=== PATIENT | male | born 1950 | race Caucasian/White ===

== ENCOUNTER 2017-10-11 05:22 | Day surgery (SDC) | payer MEDICARE, OTHER ==
[2017-10-11] MEDS ORDERED: LIDOCAINE 2% (SDV) 5 ML INJ (06:09)
[2017-10-11] MEDS ORDERED: MIDAZOLAM 1 MG/ML 2 ML INJ (06:09)
[2017-10-11] MEDS ORDERED: PROPOFOL 20 ML (06:09)
[2017-10-11] MEDS ORDERED: NEOSTIGMINE 3 MG/3 ML SYRINGE (06:09)
[2017-10-11] MEDS ORDERED: ROCURONIUM 50 MG INJ (06:09)
[2017-10-11] MEDS ORDERED: GLYCOPYRROLATE 1 MG INJ (06:09)
[2017-10-11] MEDS ORDERED: FENTAnyl 50 MCG/ML VIAL (06:09)
[2017-10-11] MEDS ORDERED: DEXAMETHASONE 4 MG/ML 1 ML INJ (06:10)
[2017-10-11] MEDS ORDERED: ONDANSETRON 4 MG INJ (06:10)
[2017-10-11] MEDS ORDERED: SUCCINYLCHOLINE CHLORIDE 100 MG/5 ML SYG IV (06:24)
[2017-10-11 06:27] LABS: ADD MAN DIFF? NO
[2017-10-11] MEDS ORDERED: EPHEDrine SULFATE 50 MG/5 ML SYG IV (06:30)
[2017-10-11] MEDS ORDERED: MIDAZOLAM 1 MG/ML 2 ML INJ IV (06:30)
[2017-10-11] MEDS ORDERED: DIPHENHYDRAMINE 50 MG INJ IV (06:30)
[2017-10-11] MEDS ORDERED: ATROPINE 1 MG/10 ML SYRINGE IV (06:30)
[2017-10-11] MEDS ORDERED: MEPERIDINE 25 MG INJ IV (06:30)
[2017-10-11] MEDS ORDERED: ONDANSETRON 4 MG INJ IV (06:30)
[2017-10-11] MEDS ORDERED: FENTAnyl 50 MCG/ML VIAL IV ×2 (06:30)
[2017-10-11] MEDS ORDERED: OXYCODONE/ACETAMINOPHEN (5/325) TAB PO ×2 (06:30)
[2017-10-11] MEDS ORDERED: LABETALOL HCL 20MG INJ IV (06:30)
[2017-10-11] MEDS ORDERED: hydrALAzine 20 MG INJ IV (06:30)
[2017-10-11] MEDS ORDERED: morphine (1 MG/ML) 10ML SYRINGE IV ×3 (06:30)
[2017-10-11] MEDS ORDERED: HYDROmorphONE (0.2 MG/ML) 10ML SYG IV ×3 (06:30)
[2017-10-11 06:40] LABS: ADD UMIC YES; UR ASCORBIC ACID NEGATIVE (NEGATIVE); UR BILIRUBIN (Dip) NEGATIVE (NEGATIVE); UR BLOOD (Dip) 1+ mg/dL (NEGATIVE); UR CLARITY CLEAR (CLEAR); UR COLOR YELLOW (YELLOW); UR GLUCOSE (Dip) NEGATIVE (NEGATIVE); UR KETONES (Dip) NEGATIVE (NEGATIVE); UR LEUKOCYTE ESTERASE (Dip) NEGATIVE Leu/ul (NEGATIVE); UR NITRITE (Dip) NEGATIVE (NEGATIVE); UR RBC 2 /HPF (0-5); UR SPECIFIC GRAVITY (Dip) 1.016 (1.003-1.030); UR TOTAL PROTEIN (Dip) NEGATIVE (NEGATIVE); UR UROBILINOGEN (Dip) NEGATIVE (NEGATIVE); UR WBC 1 /HPF (0-5)
[2017-10-11] MEDS ORDERED: BISACODYL 10 MG SUPP PR (07:00)
[2017-10-11] MEDS ORDERED: CEFAZOLIN 1 GM INJ IV (07:00)
[2017-10-11] MEDS ORDERED: EPHEDrine SULFATE 50 MG/5 ML SYG (07:00)
[2017-10-11] MEDS ORDERED: CEFAZOLIN 1 GM INJ (07:00)
[2017-10-11] MEDS ORDERED: DIPHENHYDRAMINE 25 MG CAP PO (07:00)
[2017-10-11 07:13] LABS: BASOPHILS % 0.6 % (0.0-2.0); EOSINOPHILS # 0.4 10^3/ul (0.0-0.5); EOSINOPHILS % 5.4 % (0.0-7.0); HEMATOCRIT 43.5 % (42.0-52.0); HEMOGLOBIN 15.6 g/dl (14.0-18.0); LYMPHOCYTES # 2.1 10^3/ul (0.8-2.9); LYMPHOCYTES % 29.4 % (15.0-51.0); MEAN CORPUSCULAR HEMOGLOBIN 33.7 pg (29.0-33.0); MEAN CORPUSCULAR HGB CONC 35.9 g/dl (32.0-37.0); MEAN PLATELET VOLUME 9.3 fl (7.4-10.4); MONOCYTE # 0.5 10^3/ul (0.3-0.9); MONOCYTES % 7.2 % (0.0-11.0); NEUTROPHILS % 57.1 % (39.0-77.0); PLATELET COUNT 244 10^3/UL (140-415); RED BLOOD COUNT 4.63 10^6/ul (4.70-6.10); RED CELL DISTRIBUTION WIDTH 12.5 % (11.5-14.5)
[2017-10-11 07:13] LABS: WHITE BLOOD COUNT 7.1 10^3/ul (4.8-10.8)
[2017-10-11 07:30] LABS: ALANINE AMINOTRANSFERASE 51 IU/L (13-69); ALBUMIN 4.1 g/dl (3.3-4.9); ALBUMIN/GLOBULIN RATIO 1.28; ALKALINE PHOSPHATASE 78 IU/L (42-121); ANION GAP 18 (8-16); ASPARTATE AMINO TRANSFERASE 35 IU/L (15-46); BILIRUBIN,INDIRECT 0.1 mg/dl (0-1.1); BILIRUBIN,TOTAL 0.1 mg/dl (0.2-1.3); BLOOD UREA NITROGEN 23 mg/dl (7-20); CALCIUM 9.5 mg/dl (8.4-10.2); CARBON DIOXIDE 30 mmol/L (21-31); CHLORIDE 99 mmol/L (97-110); CREATININE 1.22 mg/dl (0.61-1.24); GLUCOSE 121 mg/dl (70-220); POTASSIUM 3.1 mmol/L (3.5-5.1); SODIUM 144 mmol/L (135-144); TOTAL PROTEIN 7.3 g/dl (6.1-8.1)
[2017-10-11] MEDS ORDERED: ROPIVACAINE 0.5 % 30 ML VIAL (08:26)
[2017-10-11] MEDS: GELATIN SIZE 100 SPONGE (09:55)
[2017-10-11] MEDS: ROPIVACAINE 0.5 % 30 ML VIAL (09:56)
[2017-10-11] MEDS: POLYMYXIN/BACITRACIN 1L IRRIG (09:56)
[2017-10-11] MEDS: THROMBIN 5000 UNIT VIAL (09:56)
[2017-10-11] MEDS ORDERED: POVIDONE IODINE 10% 28.4 GM OINT (10:01)
[2017-10-11] MEDS ORDERED: POLYMYXIN/BACITRACIN 1L IRRIG (10:01)
[2017-10-11] MEDS: HYDROmorphONE 0.2 MG/ML PCA IV (13:35)
[2017-10-11] MEDS: CEFAZOLIN 2 GM/50 ML (PMX) 50 ML IVPB ×2 (13:43→20:13)
[2017-10-11] MEDS: SOD CHLORIDE 0.9% 1,000 ML IV ×2 (15:53→16:44)
[2017-10-11] MEDS: SENNA/DOCUSATE NA (8.6MG/50MG) TAB PO (20:13)
[2017-10-12] MEDS: SOD CHLORIDE 0.9% 1,000 ML IV ×3 (02:44→22:44)
[2017-10-12] MEDS: CEFAZOLIN 2 GM/50 ML (PMX) 50 ML IVPB ×3 (04:20→20:07)
[2017-10-12 05:36] LABS: ADD MAN DIFF? NO
[2017-10-12 05:46] LABS: BASOPHILS % 0.1 % (0.0-2.0); EOSINOPHILS % 0.1 % (0.0-7.0); HEMATOCRIT 40.7 % (42.0-52.0); HEMOGLOBIN 14.4 g/dl (14.0-18.0); LYMPHOCYTES # 1.6 10^3/ul (0.8-2.9); LYMPHOCYTES % 11.7 % (15.0-51.0); MEAN CORPUSCULAR HEMOGLOBIN 33.6 pg (29.0-33.0); MEAN CORPUSCULAR HGB CONC 35.4 g/dl (32.0-37.0); MEAN CORPUSCULAR VOLUME 95.1 fl (82.0-101.0); MEAN PLATELET VOLUME 9.4 fl (7.4-10.4); NEUTROPHIL # 11.4 10^3/ul (1.6-7.5); NEUTROPHILS % 80.7 % (39.0-77.0); PLATELET COUNT 251 10^3/UL (140-415); RED BLOOD COUNT 4.28 10^6/ul (4.70-6.10); RED CELL DISTRIBUTION WIDTH 12.9 % (11.5-14.5)
[2017-10-12 05:46] LABS: WHITE BLOOD COUNT 14.1 10^3/ul (4.8-10.8)
[2017-10-12] MEDS: HYDROmorphONE 0.2 MG/ML PCA IV (07:47)
[2017-10-12] MEDS: CHLORTHALIDONE 25 MG TAB PO (08:45)
[2017-10-12] MEDS: SENNA/DOCUSATE NA (8.6MG/50MG) TAB PO ×2 (08:45→20:07)
[2017-10-12] MEDS: ATENOLOL 50 MG TAB PO (08:46)
[2017-10-12] MEDS: ONDANSETRON 4 MG INJ IV ×2 (10:19→15:51)
[2017-10-12] MEDS: OXYCODONE/ACETAMINOPHEN (5/325) TAB PO ×4 (10:20→23:47)
[2017-10-12] MEDS: morphine 10 MG INJ IV (12:37)
[2017-10-12] MEDS: RIVAROXABAN 10 MG TABLET PO (18:01)
[2017-10-13] MEDS: OXYCODONE/ACETAMINOPHEN (5/325) TAB PO ×2 (04:05→09:16)
[2017-10-13] MEDS: CEFAZOLIN 2 GM/50 ML (PMX) 50 ML IVPB (04:06)
[2017-10-13] MEDS: ATENOLOL 50 MG TAB PO (08:23)
[2017-10-13] MEDS: SOD CHLORIDE 0.9% 1,000 ML IV (08:23)
[2017-10-13] MEDS: SENNA/DOCUSATE NA (8.6MG/50MG) TAB PO (08:23)
[2017-10-13] MEDS: CHLORTHALIDONE 25 MG TAB PO (08:23)
[2017-10-13] MEDS ORDERED: MAGNESIUM HYDROXIDE 30ML CUP PO (21:00)
== END 2017-10-13 12:15 | disposition home or self-care (01) ==
LOC: SDS 05:22 → REC 14:34 → SDS 10-13 12:15 → REC 06:44 → MS1 14:34
DX: M19.071 Primary osteoarthritis, right ankle and foot (principal); I10 Essential (primary) hypertension; S92.001A Unspecified fracture of right calcaneus, initial encounter for closed fracture; W19.XXXA Unspecified fall, initial encounter
CPT/HCPCS: 20900; 73600; 80053; 81001; 85025; 97116; 97163; 97530